=== PATIENT | male | born 2000 | race Caucasian/White ===

== ENCOUNTER → 2024-05-03 18:20 | Outpatient (REF) | payer OTHER, SELFPAY | LOC: MRI 3T 18:20 | PROVIDERS: ATTENDING PHYSICIAN Family Medicine | DX: G44.53 Primary thunderclap headache (principal) | CPT/HCPCS: 70553; A9575 ==

== ENCOUNTER 2025-05-19 17:40 | Emergency (ER) | payer OTHER, SELFPAY ==
[2025-05-19 17:43] VITALS: BP 138/80
[2025-05-19 19:54] VITALS: BMI 37.3
--- NOTE | 2025-05-19 20:48 | ED.GENMED ---
History of Present Illness
General
Chief Complaint: Eye Problems
Source: patient
Exam Limitations: none
Time Seen by Provider: 05/19/25 20:10
Nursing documentation reviewed up to this point in time: agreed with
History of Present Illness
History of Present Illness:
Patient is a 24-year-old male who presents to the ER for evaluation of right eye injury. He was scratched by his cat prior to arrival. He does complain of irritation foreign body sensation. He does not wear contacts or glasses. He denies any
other injuries. He is up-to-date on tetanus. He reports vision is slightly blurry.
Past History
Past History
ED Past Medical History: Psychiatric (Anxiety, self inflicted injuries, bipolar disorder, ADHD)
ED Past Surgical History: None
Social History
Tobacco: Smoker
Alcohol: Former (Quit 3 weeks ago)
Drug: Marijuana, Cocaine and Other (MDMA)
Personal: Single
Living: homeless (Recently relocated to his grandfather's house)
Employment: Not employed
Family History
Family History: Other (Uncontributory)
Phy Exam
General Physical Exam
General Presentation: no apparent distress
General age: appears stated age
General Skin: warm and dry
General Habitus: normal
General Mental: alert
General Hydration: appears well hydrated
ENT Exam
ENT Exam: EOMI
Eye Exam
Eye Exam: PERRL, EOMI and other ( right Conjunctiva is injected. Patient examined with fluorescein there is a positive corneal abrasion to the medial aspect of the conjunctiva)
Able to obtain acuity?: Yes
Eye Exam General: PERRL: bilateral and EOM intact: bilateral
Pupil Exam: Bilateral: round and reactive
Neurological Exam
Neurological Exam: alert and oriented x3
Musculoskeletal Exam
Musculoskeletal Exam: full ROM
Skin Exam
Skin Exam: normal color and warm/dry
Psychiatric Exam
Psychiatric Exam: normal mood/affect
Course
Orders/Labs/Results
Orders:
Orders
05/19/25 20:46
Erythromycin (Ilotycin) [Erythromycin 0.5% Ophthalmic Ointment] See Dose Instructions OPHTH NOW STA
05/19/25 20:47
Ibuprofen [Motrin] 600 mg PO NOW STA
05/19/25 20:48
Visual Acuity- Treatment ONCE
Vital Signs
Initial and Last Documented VS:
Initial Vital Signs
Temp Pulse Resp BP Pulse Ox
98.9 F 76 18 138/80 98
05/19/25 17:43 05/19/25 17:43 05/19/25 17:43 05/19/25 17:43 05/19/25 17:43
Last Documented Vital Signs
Temp Pulse Resp BP Pulse Ox
98.9 F 76 18 138/80 98
05/19/25 17:43 05/19/25 17:43 05/19/25 17:43 05/19/25 17:43 05/19/25 17:43
*Pulse Oximetry
SaO2: 98
Oxygen Mode of Delivery: Room air
Patient hypoxic: no
*Critical Care Note
Total Time (30-74mins, 75-104mins- exclusive of procedures): Not Applicable
ED Attending Note
-
Portions of this chart may have been created with voice recognition software.� Occasional wrong word or��sound alike� substitutions may have occurred due to the inherent limitations of voice recognition software.
Discharge Plan
Departure
Patient Disposition: Home (Routine Discharge)
Date of Disposition: 05/19/25
Time of Disposition: 20:50
Patient with high blood pressure during this ER visit?: Yes
Condition: Fair
Covid-19: Not Applicable
Discharge Problem:
Corneal abrasion
Instructions: Corneal Abrasion (DC), BLOOD PRESSURE
Prescriptions:
New
erythromycin 5 mg/gram (0.5 %) ointment
0.5 inch ophthalmic (eye) QID Qty: 3.5 0RF
No Action
Vivance
70 mg PO DAILY
Patient Comments:
father unsure of spelling of med - pt takes for ADHD
Referrals:
Osmin Teran DO [Family Provider, Family Practice]
Erika Cr MD [Active, Ophthalmology]
Activity Restrictions/Additional Instructions:
As discussed a prescription for erythromycin was sent to your pharmacy use as directed. You may take ibuprofen as needed for discomfort. Closely follow-up with ophthalmology in the next several days for reevaluation .
return with any worsening of symptoms.
Interventions
Interventions:
*Risk Screen - Suicide Last Done: 05/19/25 17:43
*General Assessment Last Done: 05/19/25 17:43
*Neglect/Abuse Screening Last Done: 05/19/25 17:43
*ED- Fall Risk Assessment Last Done: 05/19/25 17:43
*ED COVID-19 Vaccine History Last Done: 05/19/25 17:43
*ED Influenza Vaccine History Last Done: 05/19/25 17:43
Discharge Date and Time
Print Language: LIBERIAN
[2025-05-19] MEDS: MOTRIN 600 MG PO (20:55)
[2025-05-19 20:56] VITALS: BP 143/79
[2025-05-19] MEDS: ERYTHROMYCIN 0.5% OPHTHALMIC OINTMENT 1 APPLIC OPHTH (20:56)
== END 2025-05-19 21:01 | disposition home or self-care (01) ==
LOC: EMR 17:40
PROVIDERS: EMERGENCY PHYSICIAN Student in an Organized Health Care Education/Training Program; FAMILY PHYSICIAN Family Medicine
DX: S05.01XA Injury of conjunctiva and corneal abrasion without foreign body, right eye, initial encounter (principal); W55.03XA Scratched by cat, initial encounter; F17.200 Nicotine dependence, unspecified, uncomplicated
CPT/HCPCS: 99283